=== PATIENT | female | born 1930 | race Caucasian/White ===

== ENCOUNTER 2018-03-10 10:18 | Inpatient (IN) | payer MEDICARE, OTHER ==
[~2018-03-10] VITALS: Ht 160 cm; Wt 53.6 kg
[2018-03-10] MEDS ORDERED: SODIUM CHLORIDE 0.9% 1,000ML IVBOLUS ONE (10:30)
[2018-03-10] MEDS ORDERED: SODIUM CHLORIDE FLUSH 10ML SYR IVF ONE (10:30)
[2018-03-10] MEDS ORDERED: PLEASE ENTER HEIGHT AND WEIGHT MC SCH (11:00)
[2018-03-10] MEDS ORDERED: PLEASE ENTER ALLERGIES MC SCH (11:00)
[2018-03-10 11:49] LABS: MEAN CORPUSCULAR HEMOGLOBIN 33.5 pg (27.0-34.8); MEAN CORPUSCULAR VOLUME 98.5 fL (80-100); MEAN PLATELET VOLUME 9.4 fL (7.4-10.4); PLATELET COUNT 243 x10^3/uL (130-400); RED BLOOD COUNT 4.28 x10^6/uL (3.82-5.3); RED CELL DISTRIBUTION WIDTH 14.3 % (9.6-15.2)
[2018-03-10 11:52] LABS: ALANINE AMINOTRANSFERASE 31 U/L (12-78); ALBUMIN 3.6 g/dL (3.4-5.0); ANION GAP 8 mmol/L (5-15); CALCIUM 9.2 mg/dL (8.5-10.1); CHLORIDE 103 mmol/L (98-107); CREATININE 1.06 mg/dL (0.55-1.02); INTERNATIONAL NORMALIZED RATIO 1.03 (0.93-1.1); PROTHROMBIN TIME 10.6 Seconds (9.6-11.5)
[2018-03-10 11:56] LABS: ALKALINE PHOSPHATASE 76 U/L (45-117); BILIRUBIN,TOTAL 0.6 mg/dL (0.2-1.0); CREATINE KINASE, TOTAL 950 U/L (26-192); TOTAL PROTEIN 7.2 g/dL (6.4-8.2)
[2018-03-10 11:58] LABS: MICROSCOPIC INDICATED
[2018-03-10 11:59] LABS: TROPONIN I 0.146 ng/mL (0.000-0.045)
[2018-03-10] MEDS ORDERED: TORS10TA4 PO (12:09)
[2018-03-10] MEDS ORDERED: TORS5TAB4 PO (12:10)
[2018-03-10] MEDS ORDERED: ATOR-2 PO (12:11)
[2018-03-10] MEDS ORDERED: DULO30CA2 PO (12:11)
[2018-03-10] MEDS ORDERED: BENA40TA3 PO (12:11)
[2018-03-10] MEDS ORDERED: ASPIRIN 325 MG TABLET ONE (12:17)
[2018-03-10] MEDS ORDERED: ASPIRIN 325 MG TABLET PO ONE (12:30)
[2018-03-10 12:31] LABS: BASOPHILS # (AUTO) 0.02 x10^3/uL (0-0.1); BASOPHILS % (AUTO) 0 % (0-1); EOSINOPHILS % (AUTO) 0 % (1-7); LYMPHOCYTES # (AUTO) 0.96 x10^3/uL (1-3.4); LYMPHOCYTES % (AUTO) 4 % (22-44); MD SCAN; MONOCYTES # (AUTO) 1.18 x10^3/uL (0.2-0.8); MONOCYTES % (AUTO) 5 % (2-9); NEUTROPHILS # (AUTO) 20.61 x10^3/uL (1.8-6.8); NEUTROPHILS % (AUTO) 91 % (42-75)
[2018-03-10 12:35] LABS: CULTURE INDICATED? NO
[2018-03-10] MEDS ORDERED: ONDANSETRON 2MG/ML, 2ML IVPush PRN (13:30)
[2018-03-10] MEDS ORDERED: BISACODYL 10 MG SUPP PR PRN (13:30)
[2018-03-10] MEDS ORDERED: hydrALAzine 20 MG/ML, 1ML IVPush PRN (13:30)
[2018-03-10] MEDS ORDERED: morphine SULFATE 10 MG/ML, 1ML IVPush PRN (13:30)
[2018-03-10] MEDS ORDERED: DOCUSATE 100 MG CAPSULE PO PRN (13:30)
[2018-03-10] MEDS ORDERED: POLYETHYLENE GLYCOL 17 GM PACKET PO PRN (13:30)
[2018-03-10] MEDS ORDERED: SODIUM CHLORIDE 0.9%, 500ML IVBOLUS ONE (14:00)
[2018-03-10 14:30] VITALS: BP 111/66
[2018-03-10] MEDS: NS + 20MEQ KCL 1,000 ML IV SCH (15:49)
[2018-03-10 16:09] LABS: TROPONIN I 0.189 ng/mL (0.000-0.045)
[2018-03-10] MEDS: DOXYCYCLINE 100 MG in DEXTROSE 5% 250 ML IV SCH (18:22)
[2018-03-10 20:03] VITALS: BP 118/64
[2018-03-10] MEDS: ACETAMINOPHEN 325 MG TABLET PO PRN (20:32)
[2018-03-10] MEDS: ATORVASTATIN 40 MG TABLET PO SCH (20:32)
[2018-03-10] MEDS: CEFTRIAXONE PMX 1GM/50ML 50 ML IV SCH (21:38)
[2018-03-10 22:13] LABS: TROPONIN I 0.195 ng/mL (0.000-0.045)
[2018-03-11 01:00] VITALS: BP 112/64
[2018-03-11] MEDS: NS + 20MEQ KCL 1,000 ML IV SCH (05:22)
[2018-03-11] MEDS: DOXYCYCLINE 100 MG in DEXTROSE 5% 250 ML IV SCH ×2 (05:24→17:53)
[2018-03-11 05:38] LABS: BASOPHILS # (AUTO) 0.02 x10^3/uL (0-0.1); BASOPHILS % (AUTO) 0 % (0-1); EOSINOPHILS # (AUTO) 0.21 x10^3/uL (0-0.4); EOSINOPHILS % (AUTO) 1 % (1-7); LYMPHOCYTES # (AUTO) 1.02 x10^3/uL (1-3.4); LYMPHOCYTES % (AUTO) 7 % (22-44); MD NO; MEAN CORPUSCULAR HEMOGLOBIN 33.2 pg (27.0-34.8); MEAN CORPUSCULAR HGB CONC 33.9 g/dL (32.4-35.8); MEAN CORPUSCULAR VOLUME 98.1 fL (80-100); MEAN PLATELET VOLUME 9.7 fL (7.4-10.4); MONOCYTES # (AUTO) 0.94 x10^3/uL (0.2-0.8); MONOCYTES % (AUTO) 6 % (2-9); NEUTROPHILS % (AUTO) 85 % (42-75); PLATELET COUNT 167 x10^3/uL (130-400); RED BLOOD COUNT 3.48 x10^6/uL (3.82-5.3); RED CELL DISTRIBUTION WIDTH 14.3 % (9.6-15.2)
[2018-03-11 05:48] LABS: CHLORIDE 110 mmol/L (98-107)
[2018-03-11 06:11] LABS: ALANINE AMINOTRANSFERASE 32 U/L (12-78); ALBUMIN 2.7 g/dL (3.4-5.0); ALKALINE PHOSPHATASE 54 U/L (45-117); ANION GAP 8 mmol/L (5-15); BILIRUBIN,TOTAL 0.6 mg/dL (0.2-1.0); CALCIUM 8.2 mg/dL (8.5-10.1); CREATINE KINASE, TOTAL 925 U/L (26-192); CREATININE 0.78 mg/dL (0.55-1.02); TOTAL PROTEIN 5.7 g/dL (6.4-8.2)
[2018-03-11 07:32] VITALS: BP 129/69
[2018-03-11] MEDS: BENAZEPRIL 20 MG TABLET PO SCH (09:09)
[2018-03-11] MEDS: DULOXETINE 30 MG CAPSULE.DR PO SCH (09:09)
[2018-03-11] MEDS ORDERED: FENTANYL PF 100 MCG/2ML ONE ×2 (09:56→11:19)
[2018-03-11] MEDS ORDERED: PROPOFOL 10 MG/ML, 20ML ONE (09:56)
[2018-03-11] MEDS ORDERED: MIDAZOLAM 1 MG/ML, 2ML ONE (09:56)
[2018-03-11] MEDS ORDERED: SUCCINYLCHOLINE 20 MG/ML, 10ML ONE (09:57)
[2018-03-11] MEDS ORDERED: CEFAZOLIN 1,000 MG ONE ×2 (09:57)
[2018-03-11] MEDS ORDERED: EPHEDRINE 50 MG/ML, 1ML ONE (09:57)
[2018-03-11] MEDS ORDERED: PHENYLEPHRINE 10 MG/ML ONE (09:57)
[2018-03-11] MEDS ORDERED: LIDOCAINE-MPF 2% ,5ML ONE (09:57)
[2018-03-11] MEDS ORDERED: hydrALAzine 20 MG/ML, 1ML IV PRN (10:30)
[2018-03-11] MEDS ORDERED: PROCHLORPERAZINE 5 MG/ML, 2ML IV PRN (10:30)
[2018-03-11] MEDS ORDERED: LABETALOL 5MG/ML, 20ML IV PRN (10:30)
[2018-03-11] MEDS ORDERED: LORazepam 2 MG/ML, 1ML IVPush PRN (10:30)
[2018-03-11] MEDS ORDERED: EPHEDRINE 50 MG/ML, 1ML IVPush PRN (10:30)
[2018-03-11] MEDS ORDERED: MIDAZOLAM 1 MG/ML, 2ML IV PRN (10:30)
[2018-03-11] MEDS ORDERED: MEPERIDINE/PF 25MG/0.5ML IVPush PRN (10:30)
[2018-03-11] MEDS ORDERED: FENTANYL PF 100 MCG/2ML IV PRN (10:30)
[2018-03-11] MEDS ORDERED: DIPHENHYDRAMINE 50 MG/ML, 1ML IVPush PRN (10:30)
[2018-03-11] MEDS ORDERED: OXYcodone 5 MG/5 ML ORAL.SOL UDC PO PRN (10:30)
[2018-03-11] MEDS ORDERED: MORPHINE SULFATE 4 MG/ML, 1ML IVPush PRN (10:30)
[2018-03-11] MEDS ORDERED: ALBUTEROL SULFATE 2.5 MG/3 ML NPPB PRN (10:30)
[2018-03-11] MEDS ORDERED: OXYcodone 5 MG/5 ML ORAL.SOL UDC ONE (11:19)
[2018-03-11 12:15] VITALS: BP 130/55
[2018-03-11 13:43] VITALS: BP 146/65
[2018-03-11] MEDS ORDERED: ONDANSETRON 2MG/ML, 2ML ONE (16:04)
[2018-03-11] MEDS: CEFAZOLIN PMX 1GM/50ML 50 ML IV SCH ×2 (18:43→19:13)
[2018-03-11 19:58] VITALS: BP 110/45
[2018-03-11] MEDS: ATORVASTATIN 40 MG TABLET PO SCH (21:30)
[2018-03-11] MEDS: CEFTRIAXONE PMX 1GM/50ML 50 ML IV SCH (21:30)
[2018-03-12 00:04] VITALS: BP 96/55
[2018-03-12] MEDS: CEFAZOLIN PMX 1GM/50ML 50 ML IV SCH ×2 (03:03→10:30)
[2018-03-12 03:20] VITALS: BP 101/57
[2018-03-12 05:23] LABS: MEAN CORPUSCULAR HEMOGLOBIN 32.9 pg (27.0-34.8); MEAN CORPUSCULAR HGB CONC 33.2 g/dL (32.4-35.8); MEAN CORPUSCULAR VOLUME 99.2 fL (80-100); MEAN PLATELET VOLUME 9.9 fL (7.4-10.4); PLATELET COUNT 168 x10^3/uL (130-400); RED BLOOD COUNT 3.32 x10^6/uL (3.82-5.3); RED CELL DISTRIBUTION WIDTH 14.1 % (9.6-15.2)
[2018-03-12 05:33] LABS: ANION GAP 10 mmol/L (5-15); CALCIUM 8.4 mg/dL (8.5-10.1); CHLORIDE 111 mmol/L (98-107)
[2018-03-12 05:34] LABS: CREATININE 0.98 mg/dL (0.55-1.02)
[2018-03-12] MEDS: ENOXAPARIN 40 MG/0.4 ML SQ SCH (05:43)
[2018-03-12] MEDS: DOXYCYCLINE 100 MG in DEXTROSE 5% 250 ML IV SCH ×2 (05:43→19:03)
[2018-03-12 05:54] LABS: BASOPHILS # (AUTO) 0.05 x10^3/uL (0-0.1); BASOPHILS % (AUTO) 0 % (0-1); EOSINOPHILS % (AUTO) 0 % (1-7); LYMPHOCYTES # (AUTO) 0.89 x10^3/uL (1-3.4); LYMPHOCYTES % (AUTO) 5 % (22-44); MD SCAN; MONOCYTES # (AUTO) 1.21 x10^3/uL (0.2-0.8); MONOCYTES % (AUTO) 7 % (2-9); NEUTROPHILS # (AUTO) 16.11 x10^3/uL (1.8-6.8); NEUTROPHILS % (AUTO) 88 % (42-75)
[2018-03-12 07:48] VITALS: BP 110/65
[2018-03-12] MEDS: BENAZEPRIL 20 MG TABLET PO SCH (09:00)
[2018-03-12] MEDS: DULOXETINE 30 MG CAPSULE.DR PO SCH (09:23)
[2018-03-12] MEDS ORDERED: CEFAZOLIN PMX 1GM/50ML 50 ML IV ONE (11:30)
[2018-03-12 14:05] VITALS: BP 96/43
[2018-03-12] MEDS ORDERED: SODIUM CHLORIDE 0.9%, 500ML IVBOLUS ONE (15:00)
[2018-03-12 19:00] VITALS: BP 104/56
[2018-03-12] MEDS: ATORVASTATIN 40 MG TABLET PO SCH (21:46)
[2018-03-12] MEDS: CEFTRIAXONE PMX 1GM/50ML 50 ML IV SCH (21:46)
[2018-03-13 02:57] VITALS: BP 100/51
[2018-03-13 05:31] LABS: BASOPHILS # (AUTO) 0.02 x10^3/uL (0-0.1); BASOPHILS % (AUTO) 0 % (0-1); EOSINOPHILS # (AUTO) 0.02 x10^3/uL (0-0.4); EOSINOPHILS % (AUTO) 0 % (1-7); LYMPHOCYTES # (AUTO) 1.27 x10^3/uL (1-3.4); LYMPHOCYTES % (AUTO) 9 % (22-44); MD NO; MEAN CORPUSCULAR HEMOGLOBIN 33.9 pg (27.0-34.8); MEAN CORPUSCULAR HGB CONC 34.1 g/dL (32.4-35.8); MEAN CORPUSCULAR VOLUME 99.5 fL (80-100); MEAN PLATELET VOLUME 9.5 fL (7.4-10.4); MONOCYTES # (AUTO) 1.16 x10^3/uL (0.2-0.8); MONOCYTES % (AUTO) 8 % (2-9); NEUTROPHILS # (AUTO) 11.32 x10^3/uL (1.8-6.8); NEUTROPHILS % (AUTO) 82 % (42-75); PLATELET COUNT 152 x10^3/uL (130-400); RED CELL DISTRIBUTION WIDTH 14.3 % (9.6-15.2)
[2018-03-13 05:44] LABS: CHLORIDE 109 mmol/L (98-107)
[2018-03-13 05:57] LABS: ANION GAP 10 mmol/L (5-15); CALCIUM 7.9 mg/dL (8.5-10.1); CREATINE KINASE, TOTAL 280 U/L (26-192); CREATININE 1.16 mg/dL (0.55-1.02)
[2018-03-13] MEDS: ENOXAPARIN 40 MG/0.4 ML SQ SCH (06:13)
[2018-03-13 06:57] VITALS: BP 103/65
[2018-03-13] MEDS ORDERED: SODIUM CHLORIDE 0.9%, 500ML IVBOLUS ONE (07:30)
[2018-03-13] MEDS: DOXYCYCLINE 100 MG in DEXTROSE 5% 250 ML IV SCH (07:49)
[2018-03-13] MEDS: BENAZEPRIL 20 MG TABLET PO SCH (07:54)
[2018-03-13] MEDS: DULOXETINE 30 MG CAPSULE.DR PO SCH (07:54)
[2018-03-13] MEDS: ACETAMINOPHEN 325 MG TABLET PO PRN (08:59)
[2018-03-13] MEDS ORDERED: CEFD300C37 PO (09:58)
[2018-03-13] MEDS ORDERED: ENOX30SY4 SQ (09:58)
[2018-03-13] MEDS ORDERED: DOXY100T PO (09:58)
[2018-03-13 13:36] VITALS: BP 94/57
[2018-03-13 17:59] VITALS: BP 97/59
[2018-03-13 19:08] VITALS: BP 96/57
[2018-03-13] MEDS ORDERED: DOXYCYCLINE 100MG TABLET PO SCH (21:00)
[2018-03-14] MEDS ORDERED: ENOXAPARIN 30 MG/0.3 ML SQ SCH (06:00)
== END 2018-03-13 20:00 | DRG 480 ==
LOC: ED 12:56 → EDIP 13:16 → 4NOR 14:20
PROVIDERS: ADMIT Hospitalist; ATTEND Hospitalist
PROC: 0QS636Z Reposition Right Upper Femur with Intramedullary Internal Fixation Device, Percutaneous Approach (ICD-10-PCS; principal; 2018-03-11 10:30)
DX: S72.141A Displaced intertrochanteric fracture of right femur, initial encounter for closed fracture (principal); J18.9 Pneumonia, unspecified organism; M62.82 Rhabdomyolysis; W01.0XXA Fall on same level from slipping, tripping and stumbling without subsequent striking against object, initial encounter; F32.9 Major depressive disorder, single episode, unspecified; E78.5 Hyperlipidemia, unspecified; I95.9 Hypotension, unspecified; E86.0 Dehydration; R73.9 Hyperglycemia, unspecified; Z66 Do not resuscitate; T68.XXXA Hypothermia, initial encounter; I70.0 Atherosclerosis of aorta; I45.10 Unspecified right bundle-branch block; N28.9 Disorder of kidney and ureter, unspecified; Z60.2 Problems related to living alone; N18.2 Chronic kidney disease, stage 2 (mild); I13.10 Hypertensive heart and chronic kidney disease without heart failure, with stage 1 through stage 4 chronic kidney disease, or unspecified chronic kidney disease; I45.4 Nonspecific intraventricular block; Y93.01 Activity, walking, marching and hiking; Z82.49 Family history of ischemic heart disease and other diseases of the circulatory system; Y92.59 Other trade areas as the place of occurrence of the external cause; Y99.8 Other external cause status; Z90.710 Acquired absence of both cervix and uterus; Z90.49 Acquired absence of other specified parts of digestive tract; Z87.891 Personal history of nicotine dependence
CPT/HCPCS: 36415; 51702; 70450; 71045; 76000; 80048; 80053; 81001; 82550; 84484; 85025; 85610; 85730; 87040; 93005; 93306; 96360; 99291; C1713; G0378; J0690; J0696; J1650; J2250; J2405; J2704; J3010; J3480; J3490; J7060; J0330; J2370; J7030; J7040